=== PATIENT | male | born 1950 | race Caucasian/White ===

== ENCOUNTER → 2021-03-13 | Outpatient (CLI) | payer MEDICARE ==
[~2021-03-13] MED LIST: CARDURA8 MG PO; CLOPIDOGREL75 MG PO; HYDRALAZINE HC100 MG PO; METOPROLOL SUCC25 MG PO; NORVASC5 MG PO; NOVOLOG MI100 UNITS/ INJ; PRAVASTATIN SOD40 MG PO
== END ==
LOC: US 13:45
DX: N63.20 Unspecified lump in the left breast, unspecified quadrant (principal); Z85.820 Personal history of malignant melanoma of skin; R92.8 Other abnormal and inconclusive findings on diagnostic imaging of breast; Z85.828 Personal history of other malignant neoplasm of skin
CPT/HCPCS: 76641-LT

== ENCOUNTER → 2021-03-20 | Outpatient (CLI) | payer MEDICARE | LOC: KOH-I 10:30 | DX: R59.0 Localized enlarged lymph nodes (principal); N20.0 Calculus of kidney | CPT/HCPCS: 71250; 74176 ==

== ENCOUNTER 2021-04-02 12:17 | Inpatient (IN) | payer MEDICARE ==
[~2021-04-02] VITALS: Ht 175.3 cm; Wt 117.5 kg
[2021-04-02 14:01] LABS: HEMOGLOBIN 13.3 gm/dl (14.0-17.5); RED BLOOD COUNT 4.65 M/UL (4.20-5.50); WHITE BLOOD COUNT 10.3 K/UL (4.5-11.0)
[2021-04-02 15:09] LABS: BUN/CREATININE RATIO 15 (0-10)
[2021-04-02] MEDS ORDERED: CLOPIDOGREL75 MG PO (19:43)
[2021-04-02] MEDS ORDERED: HYDRALAZINE HC100 MG PO (19:43)
[2021-04-02] MEDS ORDERED: PRAVASTATIN SOD40 MG PO (19:43)
[2021-04-02] MEDS ORDERED: CARDURA8 MG PO (19:43)
[2021-04-03 04:05] LABS: HEMOGLOBIN 12.5 gm/dl (14.0-17.5); RED BLOOD COUNT 4.41 M/UL (4.20-5.50); WHITE BLOOD COUNT 10.1 K/UL (4.5-11.0)
[2021-04-03] MEDS ORDERED: METOPROLOL SUCC25 MG PO (14:48)
== END 2021-04-03 16:53 | disposition home or self-care (01) | DRG 824 ==
LOC: ER1 12:17 → CDU 17:08 → M/S 17:08
PROVIDERS: Physician Assistant; ADMIT Internal Medicine
PROC: 07B63ZX Excision of Left Axillary Lymphatic, Percutaneous Approach, Diagnostic (ICD-10-PCS; principal; 2021-04-03)
DX: C77.3 Secondary and unspecified malignant neoplasm of axilla and upper limb lymph nodes (principal); L03.313 Cellulitis of chest wall; E11.9 Type 2 diabetes mellitus without complications; I65.02 Occlusion and stenosis of left vertebral artery; Z20.822 Contact with and (suspected) exposure to COVID-19; C50.922 Malignant neoplasm of unspecified site of left male breast; N20.0 Calculus of kidney; E78.5 Hyperlipidemia, unspecified; I10 Essential (primary) hypertension; C43.9 Malignant melanoma of skin, unspecified; E66.9 Obesity, unspecified; C76.1 Malignant neoplasm of thorax; C76.42 Malignant neoplasm of left upper limb; Z86.73 Personal history of transient ischemic attack (TIA), and cerebral infarction without residual deficits; Z79.4 Long term (current) use of insulin; Z85.3 Personal history of malignant neoplasm of breast; Z88.0 Allergy status to penicillin; Z80.9 Family history of malignant neoplasm, unspecified; Z68.38 Body mass index [BMI] 38.0-38.9, adult
CPT/HCPCS: 36415; 76942; 80048; 80053; 81001; 82550; 82553; 82962; 83605; 83874; 83880; 84484; 85025; 87040; 88341; 88342; 93005; 96374; 99285; J0692; J1650; J3370; J7030; Q9967; U0002

== ENCOUNTER → 2021-04-21 | Outpatient (CLI) | payer MEDICARE ==
[~2021-04-21] MED LIST changes: +ALDACTONE 25MG25 MG PO; +ASPIRIN81 MG PO; +DAILY-VITE1 EACH PO; +ENOXAPARIN120 MG/0.8 SC; +FUROSEMIDE40 MG PO; +IPRAT-ALBUT 0.5-3 ML NEB; +K-DUR TAB 10 M10 MEQ PO; +LASIX20 MG PO; +METAMUCIL POWD822 GM PO; -NOVOLOG MI100 UNITS/ INJ; +PHYTONADIONE PO; +[UNRECOGNIZED DRUG - CODE] SC
== END ==
LOC: MRI 11:00
DX: Z12.89 Encounter for screening for malignant neoplasm of other sites (principal); C43.52 Malignant melanoma of skin of breast; C96.9 Malignant neoplasm of lymphoid, hematopoietic and related tissue, unspecified
CPT/HCPCS: 36415; 70553; 82565; A9577

== ENCOUNTER 2021-05-04 21:33 | Inpatient (IN) | payer MEDICARE ==
[~2021-05-04] VITALS: Ht 175.3 cm; Wt 115.2 kg
[~2021-05-04 21:33] MED LIST changes: -ALDACTONE 25MG25 MG PO; -ASPIRIN81 MG PO; -DAILY-VITE1 EACH PO; -ENOXAPARIN120 MG/0.8 SC; -FUROSEMIDE40 MG PO; -IPRAT-ALBUT 0.5-3 ML NEB; -K-DUR TAB 10 M10 MEQ PO; -LASIX20 MG PO; -METAMUCIL POWD822 GM PO; -NORVASC5 MG PO; -PHYTONADIONE PO; -[UNRECOGNIZED DRUG - CODE] SC
[2021-05-05 01:57] LABS: HEMOGLOBIN 13.9 gm/dl (14.0-17.5); RED BLOOD COUNT 5.29 M/UL (4.20-5.50); WHITE BLOOD COUNT 15.2 K/UL (4.5-11.0)
[2021-05-05 02:26] LABS: BUN/CREATININE RATIO 33 (0-10)
[2021-05-05] MEDS ORDERED: K-DUR TAB 10 M10 MEQ PO (09:55)
[2021-05-05] MEDS ORDERED: LASIX20 MG PO (09:55)
[2021-05-05] MEDS ORDERED: DAILY-VITE1 EACH PO (10:44)
[2021-05-05] MEDS ORDERED: METAMUCIL POWD822 GM PO (10:46)
[2021-05-05] MEDS ORDERED: [UNRECOGNIZED DRUG - CODE] SC (14:49)
[2021-05-05] MEDS ORDERED: NORVASC5 MG PO (19:44)
[2021-05-06 02:13] LABS: HEMOGLOBIN 14.4 gm/dl (14.0-17.5); RED BLOOD COUNT 5.16 M/UL (4.20-5.50); WHITE BLOOD COUNT 14.6 K/UL (4.5-11.0)
[2021-05-07 04:37] LABS: RED BLOOD COUNT 4.73 M/UL (4.20-5.50); WHITE BLOOD COUNT 14.1 K/UL (4.5-11.0)
[2021-05-07 04:49] LABS: HEMOGLOBIN 12.3 gm/dl (14.0-17.5)
[2021-05-08 04:38] LABS: HEMOGLOBIN 12.5 gm/dl (14.0-17.5); RED BLOOD COUNT 4.62 M/UL (4.20-5.50); WHITE BLOOD COUNT 13.8 K/UL (4.5-11.0)
[2021-05-09 09:08] LABS: HEMOGLOBIN 12.1 gm/dl (14.0-17.5); RED BLOOD COUNT 4.4 M/UL (4.20-5.50); WHITE BLOOD COUNT 12.5 K/UL (4.5-11.0)
[2021-05-10 09:17] LABS: HEMOGLOBIN 12.2 gm/dl (14.0-17.5); RED BLOOD COUNT 4.4 M/UL (4.20-5.50); WHITE BLOOD COUNT 11.9 K/UL (4.5-11.0)
[2021-05-11 06:32] LABS: HEMOGLOBIN 12.6 gm/dl (14.0-17.5); RED BLOOD COUNT 4.58 M/UL (4.20-5.50); WHITE BLOOD COUNT 12.5 K/UL (4.5-11.0)
[2021-05-11] MEDS ORDERED: ENOXAPARIN120 MG/0.8 SC (11:20)
[2021-05-11] MEDS ORDERED: ASPIRIN81 MG PO (11:20)
[2021-05-11] MEDS ORDERED: IPRAT-ALBUT 0.5-3 ML NEB (11:20)
[2021-05-11] MEDS ORDERED: ALDACTONE 25MG25 MG PO (11:20)
[2021-05-11] MEDS ORDERED: PHYTONADIONE PO (11:20)
[2021-05-11] MEDS ORDERED: FUROSEMIDE40 MG PO (11:20)
== END 2021-05-11 17:12 | disposition home health service (06) | DRG 432 ==
LOC: ER1 21:33 → CDU 05-05 03:32 → M/S 05-07 11:30
PROVIDERS: Internal Medicine; Physician Assistant; ADMIT Internal Medicine
PROC: B24BZZZ Ultrasonography of Heart with Aorta (ICD-10-PCS; principal; 2021-05-05)
DX: K74.60 Unspecified cirrhosis of liver (principal); I81 Portal vein thrombosis; J96.21 Acute and chronic respiratory failure with hypoxia; R18.8 Other ascites; K90.9 Intestinal malabsorption, unspecified; N17.9 Acute kidney failure, unspecified; D68.9 Coagulation defect, unspecified; C34.90 Malignant neoplasm of unspecified part of unspecified bronchus or lung; J90 Pleural effusion, not elsewhere classified; J98.11 Atelectasis; Z20.822 Contact with and (suspected) exposure to COVID-19; C43.9 Malignant melanoma of skin, unspecified; K75.81 Nonalcoholic steatohepatitis (NASH); E66.01 Morbid (severe) obesity due to excess calories; G47.33 Obstructive sleep apnea (adult) (pediatric); E78.5 Hyperlipidemia, unspecified; I12.9 Hypertensive chronic kidney disease with stage 1 through stage 4 chronic kidney disease, or unspecified chronic kidney disease; E11.22 Type 2 diabetes mellitus with diabetic chronic kidney disease; N18.30 Chronic kidney disease, stage 3 unspecified; N26.1 Atrophy of kidney (terminal); Z86.73 Personal history of transient ischemic attack (TIA), and cerebral infarction without residual deficits; Z79.82 Long term (current) use of aspirin; Z79.4 Long term (current) use of insulin; Z88.0 Allergy status to penicillin; Z87.891 Personal history of nicotine dependence; Z85.3 Personal history of malignant neoplasm of breast
CPT/HCPCS: ECHO; 36415; 71045; 76705; 80048; 80053; 81001; 82043; 82140; 82436; 82550; 82553; 82570; 82962; 83690; 83735; 83880; 84133; 84156; 84300; 84439; 84443; 84484; 85025; 85384; 85520; 85610; 85730; 86140; 93005; 93306; 94760; 97161; 99285; J1644; J1650; J1940; J2185; P9047; U0002

== ENCOUNTER → 2021-05-13 | Outpatient (CLI) | payer MEDICARE ==
[~2021-05-13] MED LIST changes: +ALDACTONE 25MG25 MG PO; +ASPIRIN81 MG PO; +DAILY-VITE1 EACH PO; +ENOXAPARIN120 MG/0.8 SC; +FUROSEMIDE40 MG PO; +IPRAT-ALBUT 0.5-3 ML NEB; +K-DUR TAB 10 M10 MEQ PO; +LASIX20 MG PO; +METAMUCIL POWD822 GM PO; +NORVASC5 MG PO; +PHYTONADIONE PO; +[UNRECOGNIZED DRUG - CODE] SC
== END ==
LOC: LAB 13:56
PROVIDERS: Internal Medicine
DX: N17.9 Acute kidney failure, unspecified (principal)
CPT/HCPCS: 36415; 80048